=== PATIENT | male | born 1965 | race African-American/Black ===

== ENCOUNTER 2017-04-27 12:43 | Emergency (ER) | payer OTHER ==
[~2017-04-27] VITALS: Ht 170.2 cm; Wt 81.8 kg
[~2017-04-27 12:43] MED LIST: ABAC300T8 PO; CHOL400T33 PO; DARU400T PO; RITO100C PO; TRUVT PO
[2017-04-27] MEDS ORDERED: LISI-661 PO (12:47)
[2017-04-27] MEDS ORDERED: ASPI81 PO (12:47)
[2017-04-27] MEDS ORDERED: CARV12 PO (12:47)
[2017-04-27 13:33] VITALS: BP 151/96
== END 2017-04-27 13:53 | disposition home or self-care (01) ==
LOC: EMS 12:43
DX: G56.02 Carpal tunnel syndrome, left upper limb (principal); I10 Essential (primary) hypertension; F17.210 Nicotine dependence, cigarettes, uncomplicated
CPT/HCPCS: 99283

== ENCOUNTER 2017-07-03 13:10 | Emergency (ER) | payer OTHER ==
[~2017-07-03] VITALS: Ht 177.8 cm; Wt 79.5 kg
[~2017-07-03 13:10] MED LIST changes: +ASPI81 PO; +CARV12 PO; +LISI-661 PO
[2017-07-03 15:29] LABS: BASOPHILS % (AUTO) 0.5 % (0.0-2.0); EOSINOPHILS % (AUTO) 0.1 % (1.0-6.0); HEMATOCRIT 43.5 % (41-53); HEMOGLOBIN 14.7 g/dL (13.5-17.5); LYMPHOCYTES # (AUTO) 4.2 K/uL (1.0-4.8); LYMPHOCYTES % (AUTO) 50.3 % (22.0-44.0); MEAN CORPUSCULAR HEMOGLOBIN 31.7 pg (26.0-34.0); MEAN CORPUSCULAR HGB CONC 33.7 G/dL (31.0-37.0); MEAN CORPUSCULAR VOLUME 94 fL (80-100); MONOCYTES # (AUTO) 0.8 K/uL (0.1-1.0); MONOCYTES % (AUTO) 9.8 % (2.0-9.0); NEUTROPHILS # (AUTO) 3.3 K/uL (1.8-7.7); NEUTROPHILS % (AUTO) 39.3 % (40.0-70.0); PLATELET COUNT (AUTO) 259 K/uL (150-450); RED BLOOD CELL COUNT(AUTO) 4.63 MIL/uL (4.50-5.90); RED CELL DISTRIBUTION WIDTH 13.7 % (11.5-14.5)
[2017-07-03 16:55] LABS: CALCIUM, TOTAL 8.6 mg/dL (8.8-10.5); CREATININE 1.84 mg/dL (0.60-1.30); POTASSIUM 3.3 mmol/L (3.5-5.1)
[2017-07-03 17:01] LABS: ALBUMIN 3.5 g/dL (3.4-5.0); BILIRUBIN,TOTAL 0.3 mg/dL (0.1-1.0); TOTAL PROTEIN, SERUM 8.5 g/dL (6.4-8.2)
[2017-07-03 17:16] LABS: INFLUENZA TYPE A NEGATIVE FOR TYPE A (NEGATIVE)
[2017-07-03 17:17] LABS: INFLUENZA TYPE B POSITIVE FOR TYPE B (NEGATIVE)
[2017-07-03] MEDS ORDERED: OSELTAMIVIR PHOSPHATE 30 MG CAPSULE PO ONE (17:30)
[2017-07-03 18:36] VITALS: BP 106/60
== END 2017-07-03 18:48 | disposition home or self-care (01) ==
LOC: EMS 13:11
DX: J11.1 Influenza due to unidentified influenza virus with other respiratory manifestations (principal); J06.9 Acute upper respiratory infection, unspecified; M79.1 Myalgia; I10 Essential (primary) hypertension; F17.210 Nicotine dependence, cigarettes, uncomplicated; Z79.82 Long term (current) use of aspirin
CPT/HCPCS: 36415; 71046; 80053; 85025; 87804; 99285; Z7610